=== PATIENT | female | born 1970 | race Caucasian/White ===

== ENCOUNTER 2018-01-25 04:33 | Emergency (ER) | payer MEDICAID ==
[~2018-01-25] VITALS: Ht 157.5 cm; Wt 63.6 kg
[~2018-01-25 04:33] MED LIST: DIVA500T35 PO; QUET200T PO
[2018-01-25 04:39] VITALS: BP 189/116
== END 2018-01-25 04:54 | disposition left against medical advice (07) ==
LOC: EMS 04:34
DX: F41.9 Anxiety disorder, unspecified (principal); Z53.21 Procedure and treatment not carried out due to patient leaving prior to being seen by health care provider

== ENCOUNTER 2020-06-04 10:49 | Inpatient (IN) | payer MEDICAID ==
[~2020-06-04] VITALS: Ht 160 cm; Wt 71.2 kg
[~2020-06-04 10:49] MED LIST changes: +DIVA-112 PO; -DIVA500T35 PO
[2020-06-04] MEDS ORDERED: LORazepam 2 MG TABLET PO PRN (13:15)
[2020-06-04] MEDS ORDERED: ZOLPIDEM TARTRATE 10 MG TABLET PO PRN (13:15)
[2020-06-04] MEDS ORDERED: QUEtiapine FUMARATE 25 MG TABLET PO PRN (14:00)
[2020-06-04 16:50] VITALS: BP 132/86
[2020-06-05] MEDS ORDERED: INFLUENZA VIRUS VACCINE QVS 2020-21 (6MO+)/PF 60 MCG/0.5 ML SYRINGE IM ONE (00:30)
[2020-06-05 01:00] VITALS: BP 128/82
[2020-06-05 08:06] VITALS: BP 120/54
[2020-06-05] MEDS: DIVALPROEX SODIUM 500 MG DR TABLET PO SCH (16:11)
[2020-06-05 16:16] VITALS: BP 117/70
[2020-06-05] MEDS ORDERED: CloNIDine HCL 0.1 MG TABLET PO PRN (17:45)
[2020-06-05] MEDS ORDERED: MAGNESIUM HYDROXIDE SUSPENSION 30 ML UDCUP PO PRN (17:45)
[2020-06-05] MEDS ORDERED: DOCUSATE SODIUM 100 MG CAPSULE PO PRN (17:45)
[2020-06-05] MEDS ORDERED: PETROLATUM,WHITE 28 GM JELLY TP PRN (17:45)
[2020-06-05] MEDS ORDERED: ONDANSETRON HCL 4 MG TABLET PO PRN (17:45)
[2020-06-05] MEDS ORDERED: NICOTINE 14 MG/24 HOUR PATCH TD PRN (17:45)
[2020-06-05] MEDS ORDERED: LOPERAMIDE HCL 2 MG CAPSULE PO PRN (17:45)
[2020-06-05] MEDS ORDERED: ALBUTEROL SULFATE HFA 90 MCG/PUFF 8 GM INHALER IH PRN (17:45)
[2020-06-05] MEDS ORDERED: IBUPROFEN 400 MG TABLET PO PRN (17:45)
[2020-06-05] MEDS ORDERED: GuaiFENesin/D-METHORPHAN [SUGAR-FREE] 200-20MG/10 ML SYRUP UDCUP PO PRN (17:45)
[2020-06-05] MEDS ORDERED: MAG HYDROX/AL HYDROX/SIMETH ES 30 ML SUSPENSION UDCUP PO PRN (17:45)
[2020-06-05] MEDS ORDERED: ACETAMINOPHEN 325 MG TABLET PO PRN (17:45)
[2020-06-05] MEDS: QUEtiapine FUMARATE 200 MG TABLET PO SCH (20:11)
[2020-06-06 01:12] VITALS: BP 110/74
[2020-06-06 08:17] VITALS: BP 121/62
[2020-06-06] MEDS: DIVALPROEX SODIUM 500 MG DR TABLET PO SCH ×2 (08:23→16:18)
[2020-06-06 16:56] VITALS: BP 147/66
[2020-06-06] MEDS: QUEtiapine FUMARATE 200 MG TABLET PO SCH (20:23)
[2020-06-07 00:37] VITALS: BP 126/70
[2020-06-07] MEDS: DIVALPROEX SODIUM 500 MG DR TABLET PO SCH ×2 (08:14→16:58)
[2020-06-07 08:15] VITALS: BP 110/68
[2020-06-07 16:00] VITALS: BP 131/90
[2020-06-07] MEDS: QUEtiapine FUMARATE 200 MG TABLET PO SCH (20:23)
[2020-06-08 00:51] VITALS: BP 125/84
[2020-06-08 07:53] LABS: BASOPHILS % (AUTO) 0.3 % (0.0-2.0); EOSINOPHILS % (AUTO) 2.8 % (1.0-6.0); HEMATOCRIT 36.2 % (36-46); HEMOGLOBIN 12.2 g/dL (12.0-16.0); LYMPHOCYTES % (AUTO) 45.1 % (22.0-44.0); MEAN CORPUSCULAR HEMOGLOBIN 31.2 pg (26.0-34.0); MEAN CORPUSCULAR HGB CONC 33.8 G/dL (31.0-37.0); MEAN CORPUSCULAR VOLUME 93 fL (80-100); MONOCYTES # (AUTO) 0.5 K/uL (0.1-1.0); MONOCYTES % (AUTO) 8.1 % (2.0-9.0); NEUTROPHILS # (AUTO) 2.9 K/uL (1.8-7.7); NEUTROPHILS % (AUTO) 43.7 % (40.0-70.0); PLATELET COUNT (AUTO) 239 K/uL (150-450); RED BLOOD CELL COUNT(AUTO) 3.92 MIL/uL (4.00-5.20)
[2020-06-08 08:08] LABS: ANION GAP 7 mmol/L (8-16); CALCIUM, TOTAL 8.6 mg/dL (8.8-10.5); CARBON DIOXIDE 27 mmol/L (22-29); CHLORIDE 105 mmol/L (98-107); CREATININE 0.64 mg/dL (0.60-1.30); GLOMERULAR FILTR. RATE CALC > 60 mL/min (>60); GLUCOSE,RANDOM 110 mg/dL (70-110); POTASSIUM 3.8 mmol/L (3.5-5.1); SODIUM SERUM 139 mmol/L (136-145); UREA NITROGEN, BLOOD 13 mg/dL (7-18)
[2020-06-08 08:10] VITALS: BP 122/63
[2020-06-08] MEDS: DIVALPROEX SODIUM 500 MG DR TABLET PO SCH ×2 (08:21→16:04)
[2020-06-08 08:39] LABS: CHOL/HDL RATIO 4.2 (3.9-5.7); CHOLESTEROL 154 mg/dL (131-200); HDL CHOLESTEROL 37 mg/dL (40-60); LDL CHOL (CALC.) 80 mg/dL (0-130); TRIGLYCERIDES 184 mg/dL (15-150)
[2020-06-08 16:03] VITALS: BP 126/85
[2020-06-08] MEDS: QUEtiapine FUMARATE 200 MG TABLET PO SCH (20:30)
[2020-06-09 00:04] VITALS: BP 120/82
[2020-06-09 08:09] VITALS: BP 122/76
[2020-06-09] MEDS: DIVALPROEX SODIUM 500 MG DR TABLET PO SCH ×2 (08:29→15:47)
[2020-06-09 16:03] VITALS: BP 145/80
[2020-06-09] MEDS: QUEtiapine FUMARATE 200 MG TABLET PO SCH (20:09)
[2020-06-10 01:03] VITALS: BP 126/72
[2020-06-10 08:01] VITALS: BP 122/67
[2020-06-10] MEDS: DIVALPROEX SODIUM 500 MG DR TABLET PO SCH ×2 (08:08→16:36)
[2020-06-10 16:04] VITALS: BP 147/91
[2020-06-10] MEDS: QUEtiapine FUMARATE 200 MG TABLET PO SCH (20:02)
[2020-06-10 21:00] VITALS: BP 138/88
[2020-06-11 05:51] VITALS: BP 107/66
[2020-06-11] MEDS: DIVALPROEX SODIUM 500 MG DR TABLET PO SCH ×2 (08:06→16:25)
[2020-06-11] MEDS: OMEGA-3/DHA/EPA/FISH OIL 1,000 MG CAPSULE PO SCH (08:06)
[2020-06-11 08:15] VITALS: BP 122/79
[2020-06-11 17:51] VITALS: BP 138/75
[2020-06-11] MEDS: QUEtiapine FUMARATE 200 MG TABLET PO SCH (20:11)
[2020-06-12 01:08] VITALS: BP 127/73
[2020-06-12] MEDS: DIVALPROEX SODIUM 500 MG DR TABLET PO SCH ×2 (08:06→16:09)
[2020-06-12] MEDS: OMEGA-3/DHA/EPA/FISH OIL 1,000 MG CAPSULE PO SCH (08:06)
[2020-06-12 08:07] VITALS: BP 117/67
[2020-06-12 16:10] VITALS: BP 123/83
[2020-06-12] MEDS: QUEtiapine FUMARATE 200 MG TABLET PO SCH (20:14)
[2020-06-13 00:29] VITALS: BP 120/74
[2020-06-13] MEDS: DIVALPROEX SODIUM 500 MG DR TABLET PO SCH ×2 (08:10→16:39)
[2020-06-13] MEDS: OMEGA-3/DHA/EPA/FISH OIL 1,000 MG CAPSULE PO SCH (08:11)
[2020-06-13 08:23] VITALS: BP 115/61
[2020-06-13 16:00] VITALS: BP 129/66
[2020-06-13] MEDS: QUEtiapine FUMARATE 200 MG TABLET PO SCH (20:02)
[2020-06-14 00:59] VITALS: BP 120/72
[2020-06-14 08:01] VITALS: BP 124/82
[2020-06-14] MEDS: OMEGA-3/DHA/EPA/FISH OIL 1,000 MG CAPSULE PO SCH (08:11)
[2020-06-14] MEDS: DIVALPROEX SODIUM 500 MG DR TABLET PO SCH ×2 (08:11→16:40)
[2020-06-14 16:00] VITALS: BP 126/84
[2020-06-14] MEDS: QUEtiapine FUMARATE 200 MG TABLET PO SCH (20:28)
[2020-06-15 03:20] VITALS: BP 123/72
[2020-06-15] MEDS: OMEGA-3/DHA/EPA/FISH OIL 1,000 MG CAPSULE PO SCH (08:03)
[2020-06-15] MEDS: DIVALPROEX SODIUM 500 MG DR TABLET PO SCH ×2 (08:03→16:40)
[2020-06-15 08:33] VITALS: BP 124/79
[2020-06-15 16:03] VITALS: BP 120/66
[2020-06-15] MEDS: QUEtiapine FUMARATE 200 MG TABLET PO SCH (20:05)
[2020-06-16 00:54] VITALS: BP 110/72
[2020-06-16 08:11] VITALS: BP 116/59
[2020-06-16] MEDS: DIVALPROEX SODIUM 500 MG DR TABLET PO SCH (08:30)
[2020-06-16] MEDS: OMEGA-3/DHA/EPA/FISH OIL 1,000 MG CAPSULE PO SCH (08:31)
== END 2020-06-16 13:00 | disposition home or self-care (01) | DRG 750 ==
LOC: B3A 16:31
PROVIDERS: ADMIT Psychiatry & Neurology Child & Adolescent Psychiatry; ATTEND Psychiatry & Neurology Child & Adolescent Psychiatry
PROC: 3E0234Z Introduction of Serum, Toxoid and Vaccine into Muscle, Percutaneous Approach (ICD-10-PCS; principal; 2020-06-05)
DX: F25.0 Schizoaffective disorder, bipolar type (principal); K21.9 Gastro-esophageal reflux disease without esophagitis; M19.90 Unspecified osteoarthritis, unspecified site; Z82.3 Family history of stroke; Z59.0 Homelessness; Z23 Encounter for immunization; Z79.899 Other long term (current) drug therapy
CPT/HCPCS: 87081; 90686

== ENCOUNTER 2021-03-11 01:19 | Emergency (ER) | payer MEDICAID | END 2021-03-11 03:00 | disposition left against medical advice (07) | LOC: EMS 01:19 | DX: Z00.00 Encounter for general adult medical examination without abnormal findings (principal); Z53.21 Procedure and treatment not carried out due to patient leaving prior to being seen by health care provider ==

== ENCOUNTER 2025-07-09 13:23 | Emergency (ER) | payer MEDICAID, OTHER ==
[~2025-07-09] VITALS: Ht 167.6 cm; Wt 75.0 kg
[2025-07-09 13:36] VITALS: TEMP 98.2
[2025-07-09] MEDS: DIVALPROEX SODIUM 500 MG ER TABLET PO ONE (13:50)
[2025-07-09 14:02] LABS: PLATELET COUNT (AUTO) 226 K/uL (150-450); RED BLOOD CELL COUNT(AUTO) 4.19 MIL/uL (4.00-5.20); RED CELL DISTRIBUTION WIDTH 13.7 % (11.5-14.5); WHITE BLOOD COUNT (AUTO) 9.1 K/uL (4.5-11.0)
[2025-07-09 14:11] LABS: CALCIUM, TOTAL 8.6 mg/dL (8.8-10.5); CREATININE 0.76 mg/dL (0.60-1.30); GLOMERULAR FILTR. RATE CALC > 60 mL/min (>60); GLUCOSE,RANDOM 73 mg/dL (70-110); SODIUM SERUM 137 mmol/L (136-145); UREA NITROGEN, BLOOD 19 mg/dL (7-18)
[2025-07-09 14:24] VITALS: BP 152/79; PULSE 78; RESP 18; O2SAT 98
[2025-07-09] MEDS: POTASSIUM CHLORIDE 20 MEQ ER TABLET PO ONE (14:24)
== END 2025-07-09 14:39 ==
LOC: EMS 13:23
DX: E87.6 Hypokalemia (principal); F25.9 Schizoaffective disorder, unspecified; F17.210 Nicotine dependence, cigarettes, uncomplicated; F15.90 Other stimulant use, unspecified, uncomplicated; F41.9 Anxiety disorder, unspecified; Z59.00 Homelessness unspecified; Z79.899 Other long term (current) drug therapy; Z88.5 Allergy status to narcotic agent; Z02.89 Encounter for other administrative examinations
CPT/HCPCS: 80048; 85025; 99284